=== PATIENT | male | born 2005 | race Caucasian/White ===

== ENCOUNTER 2024-05-30 11:33 | Emergency (ER) | payer OTHER ==
[~2024-05-30] VITALS: Ht 175.3 cm; Wt 127.3 kg
[2024-05-30 11:44] VITALS: BP 157/86; PULSE 114; RESP 18; TEMP 98.8; O2SAT 99
[2024-05-30 13:00] LABS: COVID AG,FIA SOURCE NASAL SWAB
[2024-05-30 13:15] LABS: BASOPHILS % (AUTO) 0.4 % (0.0-2.0); EOSINOPHILS % (AUTO) 0.2 % (1.0-6.0); HEMATOCRIT 42.5 % (41-53); HEMOGLOBIN 14.2 g/dL (13.5-17.5); LYMPHOCYTES # (AUTO) 1.7 K/uL (1.0-4.8); LYMPHOCYTES % (AUTO) 22.2 % (22.0-44.0); MEAN CORPUSCULAR HEMOGLOBIN 29.2 pg (26.0-34.0); MEAN CORPUSCULAR HGB CONC 33.4 G/dL (31.0-37.0); MEAN CORPUSCULAR VOLUME 87 fL (80-100); MONOCYTES # (AUTO) 0.7 K/uL (0.1-1.0); MONOCYTES % (AUTO) 9.5 % (2.0-9.0); NEUTROPHILS # (AUTO) 5.2 K/uL (1.8-7.7); NEUTROPHILS % (AUTO) 67.7 % (40.0-70.0); PLATELET COUNT (AUTO) 228 K/uL (150-450); RED BLOOD CELL COUNT(AUTO) 4.87 MIL/uL (4.50-5.90); RED CELL DISTRIBUTION WIDTH 13.8 % (11.5-14.5); WHITE BLOOD COUNT (AUTO) 7.7 K/uL (4.5-11.0)
[2024-05-30 13:29] LABS: ANION GAP 9 mmol/L (8-16); CALCIUM, TOTAL 8.7 mg/dL (8.8-10.5); CARBON DIOXIDE 28 mmol/L (22-29); CHLORIDE 102 mmol/L (98-107); CREATININE 0.97 mg/dL (0.60-1.30); GLOMERULAR FILTR. RATE CALC > 60 mL/min (>60); GLUCOSE,RANDOM 119 mg/dL (70-110); POTASSIUM 3.4 mmol/L (3.5-5.1); SODIUM SERUM 139 mmol/L (136-145); UREA NITROGEN, BLOOD 6 mg/dL (7-18)
[2024-05-30 13:37] LABS: SARS-COV2 (COVID) ANTIGEN,FIA Negative (Negative)
[2024-05-30 13:41] LABS: ALCOHOL, BLOOD (SERUM) < 3 mg/dL (0-10)
[2024-05-30 14:03] LABS: PH,URINE DRUG SCREEN 6.5 (5.0-8.0)
[2024-05-30 14:14] LABS: ALCOHOL, URINE DRUG SCREEN NEGATIVE (NEGATIVE); AMPHET/METH SCREEN,URINE NEGATIVE (NEGATIVE); BARBITURATE SCREEN, URINE NEGATIVE (NEGATIVE); BENZODIAZEPINES SCREEN,URINE NEGATIVE (NEGATIVE); CANNABINOID SCREEN,URINE POSITIVE (NEGATIVE); COCAINE SCREEN,URINE NEGATIVE (NEGATIVE); METHADONE SCREEN, URINE NEGATIVE (NEGATIVE); OPIATE SCREEN,URINE NEGATIVE (NEGATIVE); PHENCYCLIDINE SCREEN,URINE NEGATIVE (NEGATIVE)
[2024-05-30] MEDS: POTASSIUM CHLORIDE 20 MEQ ER TABLET PO ONE (14:14)
== END 2024-05-30 15:17 | disposition home or self-care (01) ==
LOC: EMS 11:33
DX: F29 Unspecified psychosis not due to a substance or known physiological condition (principal); E87.6 Hypokalemia; F12.90 Cannabis use, unspecified, uncomplicated; Z20.822 Contact with and (suspected) exposure to COVID-19
CPT/HCPCS: 99285; 87426; 80048; 85025; 36415; 80307; G0480

== ENCOUNTER 2024-06-01 15:04 | Inpatient (IN) | payer MEDICAID ==
[~2024-06-01] VITALS: Ht 172.7 cm; Wt 144.5 kg
[2024-06-01] MEDS ORDERED: HALOPERIDOL 5 MG TABLET PO PRN (16:45)
[2024-06-01] MEDS ORDERED: ESCI-8 PO (17:03)
[2024-06-01] MEDS ORDERED: QUET100T PO (17:03)
[2024-06-01] MEDS ORDERED: INFLUENZA VIRUS VACCINE TVS (6MO+) 2024-25/PF 45 MCG/0.5 ML SYRINGE IM. ONE (17:45)
[2024-06-01 22:29] VITALS: BP 131/74; PULSE 116; RESP 18; TEMP 98.6; O2SAT 97
[2024-06-01] MEDS: RisperiDONE 3 MG TABLET PO SCH (22:48)
[2024-06-01] MEDS: ZOLPIDEM TARTRATE 10 MG TABLET PO PRN (22:50)
[2024-06-02] MEDS ORDERED: LOPERAMIDE HCL 2 MG CAPSULE PO PRN (08:00)
[2024-06-02] MEDS ORDERED: PETROLATUM,WHITE 28 GM JELLY TP PRN (08:00)
[2024-06-02] MEDS ORDERED: DOCUSATE SODIUM 100 MG CAPSULE PO PRN (08:00)
[2024-06-02] MEDS ORDERED: OMEPRAZOLE 20 MG CAPSULE PO PRN (08:00)
[2024-06-02] MEDS ORDERED: ONDANSETRON 4 MG TABLET PO PRN (08:00)
[2024-06-02] MEDS ORDERED: ALBUTEROL SULFATE HFA 90 MCG/PUFF 8 GM INHALER IH PRN (08:00)
[2024-06-02] MEDS ORDERED: CloNIDine HCL 0.1 MG TABLET PO PRN (08:00)
[2024-06-02] MEDS ORDERED: IBUPROFEN 600 MG TABLET PO PRN (08:00)
[2024-06-02] MEDS ORDERED: ACETAMINOPHEN 325 MG TABLET PO PRN (08:00)
[2024-06-02] MEDS ORDERED: BACITRACIN 28 GM OINTMENT TP PRN (08:00)
[2024-06-02] MEDS ORDERED: MAG HYDROX/ALUMINUM HYD/SIMETH ES 30 ML SUSPENSION UDCUP PO PRN (08:00)
[2024-06-02] MEDS ORDERED: BENZOCAINE/MENTHOL LOZENGE PO PRN (08:00)
[2024-06-02] MEDS ORDERED: MAGNESIUM HYDROXIDE SUSPENSION 30 ML UDCUP PO PRN (08:00)
[2024-06-02 13:00] VITALS: BP 136/68; PULSE 100; RESP 18; TEMP 97.7; O2SAT 97
[2024-06-02] MEDS: LORazepam 2 MG TABLET PO PRN (14:11)
[2024-06-02 22:11] VITALS: RESP 15
[2024-06-02] MEDS: RisperiDONE 3 MG TABLET PO ONE (22:33)
[2024-06-03 08:50] VITALS: BP 142/81; PULSE 136; RESP 16; TEMP 97.7; O2SAT 98
[2024-06-03 11:15] VITALS: BP 146/76; PULSE 94; RESP 16; O2SAT 98
[2024-06-03 21:32] VITALS: BP 147/82; PULSE 99; RESP 17; TEMP 97.9; O2SAT 97
[2024-06-03 21:57] VITALS: BP 147/82; PULSE 99; RESP 16; TEMP 97.9; O2SAT 96
[2024-06-04 09:35] VITALS: BP 128/82; PULSE 113; RESP 16; TEMP 97; O2SAT 97
[2024-06-05 00:05] VITALS: BP 120/79; PULSE 109; RESP 18; TEMP 97.2; O2SAT 98
[2024-06-05 08:55] VITALS: BP 126/60; PULSE 98; RESP 16; TEMP 96.5
[2024-06-05] MEDS ORDERED: RISP3TAB77 PO (10:37)
== END 2024-06-05 11:22 | disposition home or self-care (01) | DRG 750 ==
LOC: B3A 16:15 → B2S 06-02 23:46
PROVIDERS: ADMIT Psychiatry & Neurology Psychiatry; ATTEND Psychiatry & Neurology Psychiatry
PROC: GZ52ZZZ Individual Psychotherapy, Cognitive (ICD-10-PCS; principal; 2024-06-04)
DX: F25.1 Schizoaffective disorder, depressive type (principal); R45.851 Suicidal ideations; Z20.822 Contact with and (suspected) exposure to COVID-19; F41.9 Anxiety disorder, unspecified; G47.00 Insomnia, unspecified; K59.00 Constipation, unspecified; E66.9 Obesity, unspecified; F12.90 Cannabis use, unspecified, uncomplicated; Z68.42 Body mass index [BMI] 45.0-49.9, adult
CPT/HCPCS: Z7610